=== PATIENT | female | born 1985 | race Caucasian/White ===

== ENCOUNTER 2017-07-02 13:47 | Emergency (ER) | payer OTHER ==
[~2017-07-02] VITALS: Ht 165.1 cm; Wt 69.9 kg
--- NOTE | 2017-07-02 15:16 | ED GI/GU/ABDOMINAL COMPLAINT ---
History of Present Illness General Chief Complaint: Nausea, Vomiting, Diarrhea Stated Complaint: +NV-D S/P EATING SHAN LETTUCE LAST NIGHT Source: patient Exam Limitations: no limitations Vital Signs & Intake/Output Vital Signs & Intake/Output Vital Signs Date Time Temp Pulse Resp B/P B/P Pulse O2 O2 Flow FiO2 Mean Ox Delivery Rate 07/02 1529 98.3 89 16 98/62 99 Room Air 07/02 1525 Room Air ED Intake and Output 07/03 0000 07/02 1200 Intake Total Output Total Balance Patient 154 lb Weight Weight Reported by Patient Measurement Method Allergies Coded Allergies: trazodone (Intermediate, SKIN REACTION 07/02/17) Reconcile Medications No Known Home Medications Triage Note: PT TO ER C/C N/V X 2 TODAY. DENIES STOMACH PAIN. STATES CONCERNED SHE MAY HAVE CONTRACTED [employer] TO EATING SHAN LETTUCE YESTERDAY. Triage Nurses Notes Reviewed? yes ? n Is pt currently ? No Onset: Gradual Duration: hour(s): Timing: multiple episodes today Quality/Severity: moderate HPI: 32yo female presents to ED complaining of 3 episodes of vomiting this morning prior to arrival. Patient is worried because she ate shan lettuce yesterday and there is been a recent Escherichia coli outbreak with shan lettuce. Patient states she currently feels nauseous still however no further episodes of vomiting. She is feeling one who ate this lettuce, no sick contacts. Patient denies abdominal pain, fevers, chills, diarrhea, constipation, skin rash, hematemesis, rectal bleeding. Past History Travel History Traveled to [place] past 21 day No Medical History Any Pertinent Medical History? none Surgical History Surgical History: non-contributory Psychosocial History What is your primary language Slovenian Tobacco Use: Quit >30 days ago Family History Hx Contributory? No Review of Systems Review of Systems Constitutional: Reports: no symptoms. EENTM: Reports: no symptoms. Respiratory: Reports: no symptoms. Cardiovascular: Reports: no symptoms. GI: Reports: see HPI. Genitourinary: Reports: no symptoms. Musculoskeletal: Reports: no symptoms. Skin: Reports: no symptoms. Neurological/Psychological: Reports: no symptoms. Hematologic/Endocrine: Reports: no symptoms. Immunologic/Allergic: Reports: no symptoms. All Other Systems: Reviewed and Negative Physical Exam Physical Exam General Appearance: well developed/nourished, no apparent distress, alert, awake Head: atraumatic, normal appearance Eyes: Bilateral: normal appearance. Ears, Nose, Throat, Mouth: hearing grossly normal Neck: normal inspection, supple, full range of motion Respiratory: normal breath sounds, no respiratory distress, lungs clear Cardiovascular: regular rate/rhythm Gastrointestinal: normal bowel sounds, soft, non-tender, no organomegaly Back: normal inspection, normal range of motion Extremities: normal range of motion Neurologic/Psych: awake, alert, oriented x 3 Skin: intact, normal color, warm/dry Core Measures ACS in differential dx? No Sepsis Present: No Sepsis Focused Exam Completed? No Progress Differential Diagnosis: appendicitis, bowel obstruction, cholecystitis, gastritis, hernia, inflamm bowel dis, intrauterine , pancreatitis, SBO, food poisoning, gastroenteritis, colitis, influenza Plan of Care: Orders Procedure Date/time Status URINE 07/02 151 Complete URINALYSIS 07/02 151 Complete Laboratory Tests 07/02/17 1520: Urine Color YEL, Urine Clarity HAZY H, Urine pH 7.5, Ur Specific [place] 1.015, Urine Protein TRACE H, Urine Ketones NEG, Urine Nitrite NEG, Urine Bilirubin NEG, Urine Urobilinogen 0.2, Ur Leukocyte Esterase NEG, Ur Microscopic SEDIMENT EXAMINED, Urine RBC RARE, Urine WBC 10-15 H, Ur Epithelial Cells MOD H, Urine Bacteria FEW H, Urine Mucus MANY H, Urine Hemoglobin NEG, Urine Glucose NEG, Urine Test NEGATIVE It was recommended patient stay for blood work and flu test ever 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 She understands the risks to leaving prior to completion of diagnostic workup. Patient insists that she will return if she has any persistent or worsening symptoms. Patient has no tenderness on abdominal exam, her vital signs are stable, she is in no acute distress and nontoxic appearing. There is a low suspicion for acute appendicitis. Patient was given strict return precautions and is aware of the risk allergies to leave prior to completion up blood work. Patient agrees with plan of care. The patient was discussed with Dr. Sanchez who agrees with plan of care. Initial ED EKG: none Departure Departure Disposition: HOME OR SELF CARE Condition: Stable Clinical Impression Primary Impression: Nausea & vomiting Referrals: Patient Has No Primary Care Dr (PCP/Family) Additional Instructions: Your leaving prior to the completion of blood tests and further assessment. It is recommended that he return if you have any worsening symptoms or concerns. Please note that there might be incidental findings in your evaluation that are unrelated to the current emergency department visit. Please notify your primary care doctor about this emergency department visit in order to obtain and review all of the testing performed so that these incidental findings can be monitored as needed. If you had an x-ray performed, please understand that some fractures may not be seen on the initial set of x-rays. If your symptoms persist you might need a repeat set of x-rays to check for such a fracture. If you had a laceration evaluated, please understand that foreign bodies such as glass or wood may not be visible to the naked eye or on plain x-rays. If the wound becomes red, swollen, increasingly more painful or if there is any drainage from the wound, please have it reevaluated by a physician for the possibility of a retained foreign body. If you're unable to follow up as outlined in the discharge instructions please return to the emergency department. Thank you for choosing the [facility] Emergency Department for your care. It was a pleasure to serve you today. Departure Forms: Customer Survey General Discharge Information Prescriptions: Current Visit Scripts No Known Home Medications
[2017-07-02 15:29] VITALS: BP 98/62
== END 2017-07-02 15:36 ==
LOC: ERH 13:47
DX: R11.2 Nausea with vomiting, unspecified (principal)
CPT/HCPCS: 81001; 81025; J3101